=== PATIENT | male | born 1995 | race Caucasian/White ===

== ENCOUNTER 2019-05-17 23:12 | Emergency (ER) | payer SELFPAY ==
[~2019-05-17] VITALS: Ht 185.4 cm; Wt 110.0 kg
[~2019-05-17 23:12] MED LIST: ACET500C5 PO; DOCU-144 PO; PSYL1PAC8 PO
[2019-05-17 23:22] VITALS: Ht 185.4 cm; Wt 110.0 kg
[2019-05-18] MEDS ORDERED: KETOROLAC 30 MG INJ IM STA (02:31)
[2019-05-18] MEDS ORDERED: TRAM50TA2 PO (04:13)
[2019-05-18 04:24] VITALS: BP 125/80; PULSE 59; RESP 18
--- NOTE | 2019-05-20 22:57 | ERD ---
ER Documentation Chief Complaint Chief Complaint RUQ PAIN X 2 DAYS HPI 23yo M presents with complaint of right sided abdominal pain x 3-4days. Pt rates pain as 10/10 and notes pain starts at right side of abdomen and radiates to the right groin. He expresses concern as has hx of fatty liver, diagnosed 6 months ago. He denies use of medications to alleviate his symptoms but has attempted the BRAT diet, without improvement. He denies vomiting or diarrhea, but admits to nausea. ROS All systems reviewed and are negative except as per history of present illness. CONSTITUTIONAL: Denies fever, Denies chills, Denies general weakness. RESPIRATORY: Denies SOB, Denies cough. CARDIOVASCULAR: Denies chest pain, Denies palpitations GI: Admits to abdominal pain, Admits to nausea, Denies vomiting, Denies diarrhea. : Denies dysuria, Denies urgency, Denies hematuria MUSCULOSKELETAL: Denies thoracic pain, Denies lumbar pain, Denies extremity pain NEURO: Denies focal weakness, Denies slurred speech, Denies gait problems PSYCHIATRIC: Denies change mental status, Denies confusion Medications Home Meds Active Scripts Tramadol HCl (Tramadol HCl) 50 Mg Tablet, 50 MG PO Q6 PRN for PAIN, #8 TAB Prov:VAUGHN RAI PA-C 05/18/19 Psyllium Seed/Sucrose* (Metamucil* Packet) 1 Pkt Packet, 1 PKT PO BID for CONSTIPATION, #10 PACKET 0 Refills Prov:LATONIA CELESTE PA-C 03/10/16 Docusate Sodium* (Colace*) 100 Mg Capsule, 100 MG PO TID, #30 CAP 0 Refills Prov:LATONIA CELESTE PA-C 03/10/16 Acetaminophen* (Tylophen*) 500 Mg Capsule, 1 CAP PO Q6H PRN for PAIN AND OR ELEVATED TEMP, #30 CAP 0 Refills Prov:LATONIA CELESTE PA-C 03/10/16 Allergies Allergies: Coded Allergies: No Known Allergy (Unverified , 03/26/15) PMhx/Soc Medical and Surgical Hx: pt denies Medical Hx History of Surgery: Yes (Appendectomy) Anesthesia Reaction: No Hx Neurological Disorder: No Hx Respiratory Disorders: No Hx Cardiac Disorders: No Hx Psychiatric Problems: No Hx Miscellaneous Medical Probl: No Hx Alcohol Use: No Hx Substance Use: No Hx Tobacco Use: No Smoking Status: Never smoker FmHx Family History: No diabetes, No coronary disease, No other Physical Exam Vitals Vital Signs Date Temp Pulse Resp B/P (MAP) Pulse Ox O2 O2 Flow FiO2 Time Delivery Rate 05/18/19 98.4 59 18 125/80 97 04:24 (95) 05/17/19 99.0 85 18 173/91 98 23:22 (118) Physical Exam GEN: Alert and coherent. Well appearing, non-toxic. No acute distress. HEAD: Normocephalic, atraumatic. EYES: EOMI. PERRL. No conjunctival injection. ENT: Nasal passages patent. Moist mucous membranes. Uvula midline. NECK: Supple. Full range of motion. Trachea midline. No lymphadenopathy. RESP: No tachypnea. Clear to auscultation bilaterally. No wheezing, rales or rhonchi. No accessory muscle use. CV: Regular rate and rhythm. No murmurs, rubs, or gallops. ABD: Soft, non-distended. RUQ and right flank tenderness. Negative stark. No guarding. No rebound tenderness or rigidity. No masses. No RLQ TTP. Positive bowel sounds in all four quadrants. BACK: Full ROM. Positive Right CVA tenderness. EXTR: No deformity. No clubbing, cyanosis or edema. Equal pulses x 4. SKIN: Warm and dry. No obvious rashes, erythema, or petechiae. NEURO: Alert and oriented x3. Appropriate speech, mood and affect. Face is symmetric. Speech is normal. CN II-XII intact. Moves all extremities equally. Ambulates with a strong, steady gait. Result Diagram: 05/18/19 0254 05/18/19 0254 Results 24 hrs Laboratory Tests Test 05/18/19 02:54 White Blood Count 9.0 10^3/ul Red Blood Count 5.40 10^6/ul Hemoglobin 16.0 g/dl Hematocrit 47.1 % Mean Corpuscular Volume 87.2 fl Mean Corpuscular Hemoglobin 29.6 pg Mean Corpuscular Hemoglobin Concent 34.0 g/dl Red Cell Distribution Width 11.6 % Platelet Count 281 10^3/UL Mean Platelet Volume 9.8 fl Immature Granulocytes % 0.300 % Neutrophils % 50.9 % Lymphocytes % 35.5 % Monocytes % 7.3 % Eosinophils % 5.4 % Basophils % 0.6 % Nucleated Red Blood Cells % 0.0 /100WBC Immature Granulocytes # 0.030 10^3/ul Neutrophils # 4.6 10^3/ul Lymphocytes # 3.2 10^3/ul Monocytes # 0.7 10^3/ul Eosinophils # 0.5 10^3/ul Basophils # 0.1 10^3/ul Nucleated Red Blood Cells # 0.0 10^3/ul Prothrombin Time 12.4 Sec Prothrombin Time Ratio 1.0 INR International Normalized Ratio 0.91 Activated Partial Thromboplast Time 29.9 Sec Urine Color YELLOW Urine Clarity CLEAR Urine pH 5.0 Urine Specific [place] 1.025 Urine Ketones NEGATIVE mg/dL Urine Nitrite NEGATIVE mg/dL Urine Bilirubin NEGATIVE mg/dL Urine Urobilinogen NEGATIVE mg/dL Urine Leukocyte Esterase NEGATIVE Blane/ul Urine Hemoglobin NEGATIVE mg/dL Urine Glucose NEGATIVE mg/dL Urine Total Protein NEGATIVE mg/dl Sodium Level 145 mmol/L Potassium Level 4.1 mmol/L Chloride Level 103 mmol/L Carbon Dioxide Level 29 mmol/L Anion Gap 13 Blood Urea Nitrogen 11 mg/dl Creatinine 0.91 mg/dl Est Glomerular Filtrat Rate mL/min > 60 mL/min Glucose Level 96 mg/dl Calcium Level 9.3 mg/dl Total Bilirubin 0.5 mg/dl Direct Bilirubin 0.00 mg/dl Indirect Bilirubin 0.5 mg/dl Aspartate Amino Transf (AST/SGOT) 37 IU/L Alanine Aminotransferase (ALT/SGPT) 76 IU/L Alkaline Phosphatase 107 IU/L Total Protein 8.8 g/dl Albumin 4.5 g/dl Globulin 4.30 g/dl Albumin/Globulin Ratio 1.04 Lipase 139 U/L Current Medications Medications Dose Sig/Zandra Start Time Status Last (Trade) Ordered Route PRN Stop Time Admin Dose Reason Admin Ketorolac 30 mg ONCE STAT 05/18/19 DC 05/18/19 Tromethamine IM 02:31 02:46 (Toradol) 05/18/19 02:37 Procedures/MDM PROCEDURE: CT Abdomen and pelvis without contrast. FINDINGS: The kidneys are normal in size without calcified calculi hydronephrosis or intra masses bilaterally. No evidence ureteral calcified calculi or dilatation. Partially contracted otherwise unremarkable urinary bladder. Prostate unremarkable. No evidence of intra-abdominal free air, free fluid, abscesses or lymphadenopathy. The appendix is not visualized however no CT evidence of appendicitis. Stomach, small bowel and large bowel unremarkable. Liver spleen pancreas adrenal glands and gallbladder are unremarkable. No evidence biliary ductal dilation. Lung bases unremarkable. Aorta unremarkable. Abdominal pelvic wall unremarkable. Osseous structures unremarkable. IMPRESSION: Normal CT scan of the abdomen pelvis. MDM: 23yo M presents for evaluation of right sided abdominal/flank pain x 3-4 days. On exam pt with positive right sided CVA tenderness, and endorsing pain radiating to groin. Labs and imaging unremarkable for Nephrolithiasis, cholelithiasis, or other emergent condition. No white count, no hematuria, no significantly abnormal lab findings. Pt endorsed improving pain after receiving Toradol IM. NAD on re-evaluation, and vital signs normal. Given no acute or emergent findings, and improvement in symptoms, pt is stable for discharge with outpatient management at this time. Advised to return to ED within 8hrs if symptoms persist or worsen. Pt to f/u with PCP in next 1-2 days, and referral to local community clinics given. Pt expressed verbal understanding and agreement to treatment plan. All questions addressed and answered. Departure Diagnosis: Primary Impression: Abdominal pain Abdominal location: right upper quadrant Qualified Codes: R10.11 - Right upper quadrant pain Condition: Stable Patient Instructions: Abdominal Pain Ref[facility] Usted se yip hecho un examen mdico de control que le indica que no est en barbara condicin que requiera tratamiento urgente en el Departamento de Emergencia. Un estudio ms profundo y el tratamiento de henning condicin pueden esperar sin ningn riesgo hasta que usted sea atendida/o en el consultorio de henning mdico o barbara clnica. Es responsabilidad suya arreglar barbara jovanny para el seguimiento del eugenia. MANEJO DE CONDICIONES NO URGENTES EN EL FUTURO 1) Si usted tiene un mdico de atencin primaria: Usted debera llamar a henning mdico de atencin primaria antes de venir al departamento de emergencia. Despus de las horas de consultorio, henning doctor o henning asociado/a est disponible por telfono. El mdico o enfermero de shalom en el servicio telefnico puede asesorarle por archie medio para atender el problema, o c aso contrario se puede programar barbara jovanny. 2) Si usted no tiene un mdico de atencin primaria: Llame al mdico o clnica de referencia que aparece abajo cass las horas de consultorio para hacer barbara jovanny para que le vean. CLINICAS: [facility] [id number] [facility] [phone] [id number] [facility] [phone] [address] [place] [id number] [phone] [place] [id number] [phone] [facility] [phone] VAUGHN DE LA VEGA PA-C May 20, 2019 22:57
== END 2019-05-18 04:25 | disposition home or self-care (01) ==
LOC: FTE 23:12
DX: R10.11 Right upper quadrant pain (principal)
CPT/HCPCS: 36415; 74176; 80053; 81003; 83690; 85025; 85610; 85730; 96372; 99285; J1885